=== PATIENT | female | born 1995 | race Hispanic/Latino ===

== ENCOUNTER 2021-11-05 18:35 | Emergency (ER) | payer SELFPAY ==
[2021-11-05 21:00] LABS: #Eosinphils 0.1 10x3/uL (0.0-0.5); #Monocytes 0.6 10x3/uL (0.0-1.1); #Neutrophils 6.4 10x3/uL (1.5-8.4); %Basophils 0.3 % (0.0-2.0); %Eosinophils 1.1 % (0.0-6.0); %Lymphocytes 29.2 % (18.0-47.0); %Monocytes 6.1 % (0.0-10.0); Hemoglobin 8.9 g/dL (12.0-15.5); Mean Corpuscular HGB CONC 28.2 g/dL (32.0-36.0); Mean Corpuscular Hemoglobin 19.6 pg (27.0-33.0); Mean Corpuscular Volume 69.6 fl (81.6-98.3); Mean Platelet Volume 9.1 fl (7.4-10.4); Platelet Count 333 10x3/uL (150-450); RBC Distribution Width 20.4 % (11.5-14.5); Red Blood Cell (RBC) Count 4.54 10x6/uL (3.90-5.03); White Blood Cell (WBC) Count 10.2 10x3/uL (3.5-10.5)
[2021-11-05 21:15] LABS: Microcytosis SLIGHT = 6-15 cells (100X) (0-5/hpf)
[2021-11-05 21:16] LABS: Hypochromia SLIGHT = 6-15 cells (100X) (0-5/hpf); Platelet Morphology Comment Appears Adequate
[2021-11-05 23:22] LABS: Bilirubin Neg (Negative); Blood, Urine 10 (Negative); Clarity Clear (Clear); Glucose, Urine (Dipstick) Normal (Negative); Ketone, Urine Negative (Negative); Leukocyte Negative (Negative); Nitrite Negative (Negative); Protein, Urine (Dipstick) Negative (Neg-Trace); Urobilinogen Normal mg/dL (Less than 2)
[2021-11-05 23:39] LABS: Bacteria/HPF None Seen HPF (None Seen); RBC/HPF 0-3 HPF (0-3); Squamous Epithelial 0-3 HPF (0-3); WBC/HPF 0-3 HPF (0-3)
== END 2021-11-06 00:16 | disposition home or self-care (01) ==
LOC: CSHERS 18:35
DX: O20.9 Hemorrhage in early pregnancy, unspecified (principal); Z3A.08 8 weeks gestation of pregnancy
CPT/HCPCS: 36415; 76856; 81003; 81015; 84702; 85025; 86900; 86901; 93976

== ENCOUNTER 2022-05-16 23:39 | Day surgery (SDC) | payer MEDICAID, OTHER ==
[2022-05-17 00:36] LABS: Fetal Membranes Rupture No Membranes Rupture (No Rupture)
[2022-05-17 00:37] VITALS: BMI 42.6
== END 2022-05-17 02:27 | disposition home or self-care (01) ==
LOC: CSHLD/OP 23:39
PROVIDERS: ATTEND Family Medicine
DX: Z03.71 Encounter for suspected problem with amniotic cavity and membrane ruled out (principal); O23.593 Infection of other part of genital tract in pregnancy, third trimester; B96.89 Other specified bacterial agents as the cause of diseases classified elsewhere; Z79.899 Other long term (current) drug therapy; Z3A.36 36 weeks gestation of pregnancy
CPT/HCPCS: 84112; 87480; 87510; 87660; 99285

== ENCOUNTER 2022-05-24 01:45 | Day surgery (SDC) | payer MEDICAID ==
[2022-05-24 02:49] VITALS: BMI 42.6
[2022-05-24] MEDS ORDERED: hydrALAZINE 20 MG/ML VIAL SLOW IVP PRN (03:06)
[2022-05-24] MEDS ORDERED: Acetaminophen 325 MG TAB PO PRN (03:09)
[2022-05-24 03:30] LABS: Fetal Membranes Rupture No Membranes Rupture (No Rupture)
[2022-05-24 03:50] LABS: Bilirubin Neg (Negative); Blood, Urine Negative (Negative); Clarity Clear (Clear); Glucose, Urine (Dipstick) Normal (Negative); Ketone, Urine Negative (Negative); Leukocyte 25 (Negative); Nitrite Negative (Negative); Protein, Urine (Dipstick) Negative (Neg-Trace); Specific Gravity, Urine 1.015 (1.005-1.030); Urobilinogen Normal mg/dL (Less than 2); pH, Urine 6.5 (5.0-9.0)
[2022-05-24 04:07] LABS: RBC/HPF None Seen HPF (0-3)
[2022-05-24 04:08] LABS: Bacteria/HPF None Seen HPF (None Seen); CAUTI Indications for Culture Pregnancy; Squamous Epithelial None Seen HPF (0-3); WBC/HPF 0-3 HPF (0-3)
[2022-05-24 04:09] LABS: Urine Culture Reflex Yes Yes
== END 2022-05-24 06:13 | disposition home or self-care (01) ==
LOC: CSHLD/OP 01:45
PROVIDERS: ATTEND Family Medicine
DX: O47.1 False labor at or after 37 completed weeks of gestation (principal); O99.013 Anemia complicating pregnancy, third trimester; D64.9 Anemia, unspecified; Z79.899 Other long term (current) drug therapy; O23.593 Infection of other part of genital tract in pregnancy, third trimester; N89.8 Other specified noninflammatory disorders of vagina; B96.89 Other specified bacterial agents as the cause of diseases classified elsewhere; Z3A.37 37 weeks gestation of pregnancy
CPT/HCPCS: 81001; 84112; 87086; 87480; 87510; 87660; 99285

== ENCOUNTER 2022-06-04 17:00 | Inpatient (IN) | payer MEDICAID, OTHER, SELFPAY ==
[~2022-06-04 17:00] MED LIST: Bupivacaine 0.25% HCL 30 ML VIAL ONE
[2022-06-05] MEDS ORDERED: Fentanyl 100 MCG/2 ML VIAL SLOW IVP PRN (00:26)
[2022-06-05] MEDS ORDERED: Lidocaine 1% (PF) 30 ML VIAL SC PRN (00:26)
[2022-06-05] MEDS ORDERED: Diphenoxylate HCl/Atropine Tablet PO PRN (00:26)
[2022-06-05] MEDS ORDERED: Promethazine HCl 25 MG/ML VIAL IM PRN ×3 (00:26→15:54)
[2022-06-05] MEDS ORDERED: Methylergonovine 0.2 MG/ML VIAL IM PRN ×2 (00:26→15:54)
[2022-06-05] MEDS ORDERED: hydrALAZINE 20 MG/ML VIAL SLOW IVP PRN ×2 (00:26→15:54)
[2022-06-05] MEDS ORDERED: Butorphanol Tartrate 1 MG/ML VIAL SLOW IVP PRN (00:26)
[2022-06-05] MEDS ORDERED: Ibuprofen 800 MG TAB PO PRN (00:26)
[2022-06-05] MEDS ORDERED: HYDROcodone/Acetaminophen 5/325 mg Tablet PO PRN ×3 (00:26→15:54)
[2022-06-05] MEDS ORDERED: Misoprostol 200 MCG TAB PR PRN (00:26)
[2022-06-05] MEDS ORDERED: Acetaminophen 500 MG TAB PO PRN (00:26)
[2022-06-05] MEDS ORDERED: Ondansetron PF 4 MG/2 ML Vial IVP PRN ×3 (00:26→15:54)
[2022-06-05] MEDS ORDERED: Carboprost 250 MCG/ML AMP IM PRN (00:26)
[2022-06-05] MEDS ORDERED: Tranexamic Acid 1,000 MG/10 ML VIAL IVP PRN (00:26)
[2022-06-05 00:28] VITALS: BMI 43.1
[2022-06-05] MEDS ORDERED: Lactated Ringer's 1,000 ML IV SCH (01:00)
[2022-06-05] MEDS ORDERED: NS w/ Oxytocin 30 units 500 ML IV SCH ×4 (01:00→15:54)
[2022-06-05 01:10] LABS: Hemoglobin 10.1 g/dL (12.0-15.5); Mean Corpuscular HGB CONC 30.6 g/dL (32.0-36.0); Mean Corpuscular Hemoglobin 23.6 pg (27.0-33.0); Mean Corpuscular Volume 77.1 fl (81.6-98.3); Mean Platelet Volume 9.8 fl (7.4-10.4); Platelet Count 225 10x3/uL (150-450); RBC Distribution Width 19.7 % (11.5-14.5); Red Blood Cell (RBC) Count 4.28 10x6/uL (3.90-5.03); White Blood Cell (WBC) Count 10.1 10x3/uL (3.5-10.5)
[2022-06-05] MEDS: Misoprostol 100 MCG TAB PO SCH ×3 (01:21→17:22)
[2022-06-05 02:19] LABS: HBSAg Index 0.14 S/CO (0-0.99); Hep B Surf Ag - L&D Non-Reactive S/CO (NonReactive); Syphilis Antibody Nonreactive (Nonreactive); Syphilis Antibody Index 0.03 S/CO (<1.00 Non-Reactive)
[2022-06-05] MEDS ORDERED: Fentanyl 2 mcg/Bup 0.1% Cadd 100 ML ONE (08:04)
[2022-06-05] MEDS ORDERED: Lactated Ringer's 500 ML IV PRN (11:38)
[2022-06-05] MEDS ORDERED: Acetaminophen 325 MG TAB PO PRN (11:38)
[2022-06-05] MEDS ORDERED: Moisturizing Cream (Eucerin) 113 GM JAR TOP PRN (11:38)
[2022-06-05] MEDS ORDERED: Naloxone HCl 0.4 mg/ml Vial IVP PRN ×2 (11:38)
[2022-06-05] MEDS ORDERED: diphenhydrAMINE 50 MG/ML VIAL IVP PRN (11:38)
[2022-06-05] MEDS ORDERED: ePHEDrine Sulfate 50 MG/10 ML VIAL SLOW IVP PRN (11:38)
[2022-06-05] MEDS ORDERED: Fentanyl 2 mcg/Bupivacaine 0.1% Cassette 100 ML EPIDURAL SCH (11:45)
[2022-06-05] MEDS ORDERED: Communication Order-Pharmacy FS SCH (11:45)
[2022-06-05] MEDS ORDERED: Bisacodyl 10 MG SUPP PR PRN (15:54)
[2022-06-05] MEDS ORDERED: Benzocaine-Menthol 82.5 ML CAN TOP PRN (15:54)
[2022-06-05] MEDS ORDERED: Lanolin Ointment 7 GM TUBE TOP PRN (15:54)
[2022-06-05] MEDS ORDERED: diphenhydrAMINE 25 MG CAP PO PRN (15:54)
[2022-06-05] MEDS ORDERED: Boostrix 0.5 ML (Tdap) VIAL (>/=7 yrs of age) IM ONE (15:54)
[2022-06-05] MEDS ORDERED: Milk Of Magnesia 30 ML UDCUP PO PRN (15:54)
[2022-06-05] MEDS ORDERED: Ibuprofen 800 MG TAB PO SCH (17:00)
[2022-06-05] MEDS: Ferrous Sulfate 325 MG TAB PO SCH (17:23)
[2022-06-05] MEDS: Docusate 100 MG CAP PO SCH (21:33)
[2022-06-05] MEDS: Ibuprofen 800 MG TAB PO SCH (21:33)
[2022-06-06] MEDS: Ibuprofen 800 MG TAB PO SCH ×2 (05:17→14:14)
[2022-06-06] MEDS: Ferrous Sulfate 325 MG TAB PO SCH (07:57)
[2022-06-06] MEDS: Docusate 100 MG CAP PO SCH (07:58)
[2022-06-06] MEDS ORDERED: Prenatal Vitamin 1 TAB PO SCH (09:00)
[2022-06-06 11:28] VITALS: BP 123/76; TEMP 98.5
== END 2022-06-06 15:53 | disposition home or self-care (01) | DRG 807 ==
LOC: CSHLD 23:52 → CSHPP 06-05 15:53
PROVIDERS: ADMIT Family Medicine; ATTEND Family Medicine
PROC: 10E0XZZ Delivery of Products of Conception, External Approach (ICD-10-PCS; principal; 2022-06-05)
PROC: 10907ZC Drainage of Amniotic Fluid, Therapeutic from Products of Conception, Via Natural or Artificial Opening (ICD-10-PCS; 2022-06-05)
PROC: 3E0P7VZ Introduction of Hormone into Female Reproductive, Via Natural or Artificial Opening (ICD-10-PCS; 2022-06-05)
DX: O69.81X0 Labor and delivery complicated by cord around neck, without compression, not applicable or unspecified (principal); Z37.0 Single live birth; Z3A.39 39 weeks gestation of pregnancy; O32.8XX0 Maternal care for other malpresentation of fetus, not applicable or unspecified; Z79.899 Other long term (current) drug therapy
CPT/HCPCS: 36415; 51702; 85027; 86780; 86850; 86900; 86901; 87340; J2590; J3010; S0020